=== PATIENT | female | born 1940 | race Caucasian/White ===

== ENCOUNTER 2020-09-20 05:54 | Day surgery (SDC) | payer MEDICARE, SELFPAY ==
--- NOTE | 2020-09-19 22:04 | PCM.HP.BLA ---
History and Physical Date of Admission: 09/20/20 HISTORY OF PRESENT ILLNESS 80 year old female presents for evaluation for TBSE. She has concerns about enlarging lesions on her right supramedial cheek and left chin that have been increasing in size. They have also developed ulceration. She states the lesion on her right supramedial cheek has been excised in the past and she was told it was a basal cell carcinoma. She also has concerns about an erythematous lesion on her left cheek by the lateral lower eyelid and a lesion right lateral canthal area that have increased in size as well. She has a family history of skin cancer. She presents today for further evaluation and treatment. 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 Eyes - History of cataracts but denies glaucoma. ENT - Denies nasal congestion and sore throat. Has history of seasonal allergies. Endocrine - Denies excessive thirst and urination. Skin - Has a history of basal cell carcinoma right supramedial cheek. She has enlarging lesions right supramedial cheek, left chin, left cheek by lateral lower eyelid, and right lateral canthal area. Has family history of skin cancer. Musculoskeletal - Denies joint pain, joint stiffness, weakness of muscles and joints, back pain, and arthritis. History of bone fractures. Neuro - Denies headaches. Cardiovascular - Denies chest pain, fatigue, and shortness of breath with exertion. History of HTN. Psych - Denies anxiety and depression. Respiratory - Denies chronic cough and shortness of breath. Gastrointestinal - Denies nausea, vomiting, diarrhea, and constipation. Hematologic - Denies abnormal bruising and bleeding. Genitourinary - Denies hematuria and urinary frequency. PHYSICAL EXAMINATION General - Alert and oriented. HEENT - PERRL. EOMI. Throat is clear. On the right supramedial cheek is an ulcerated lesion that measures 8 mm. Some nodularity seen. Has irregular borders. Lesion is nontender. On the left chin is an ulcerated lesion that measures 1.1 cm. Some nodularity seen. Has irregular borders. Lesion is nontender. On the left cheek by lateral lower eyelid is an erythematous lesion that measures 5 mm. Lesion is flat. Has irregular borders. No ulceration. Lesion is nontender. On the right lateral canthal area is a nodular lesion that measures 4 mm. Has irregular borders. No ulceration. Lesion is nontender. Neck - Supple and non-tender. No cervical adenopathy. No suspicious lesions noted. Lungs- Clear to auscultation. Heart - Regular rate and rhythm. Abdomen - Soft and non distended. Extremities - FROM. No axillary adenopathy. Radial pulses are palpable. No suspicious lesions noted. Neuro - CN II-XII grossly intact. Psych - Normal mood and affect. ASSESSMENT 1. 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 2. 1.1 cm ulcerated lesion left chin, clinically consistent with basal cell carcinoma. 3. 5 mm erythematous lesion left cheek by lateral lower eyelid. 4. 4 mm lesion right lateral canthal area. 5. Family history of skin cancer. PLAN Recommend excision of these lesions (right supramedial cheek, left chin, left cheek by lateral lower eyelid, and right lateral canthal area) and send them to Pathology for analysis to rule out carcinoma. If carcinoma is present, then further excision will be done with local skin flap reconstruction. If all 4 lesions are carcinoma, will reconstruct them in stages. Will reconstruct the right supramedial cheek wound after excision of the recurrent basal cell carcinoma with a cheek advancement skin flap. The lesion left chin is clinically consistent with a basal cell carcinoma and will be sent for a frozen section as well. If carcinoma is seen, will excise with a margin. Will initially leave the wound open and proceed with Silver dressing changes postoperatively. Can reconstruct at a later date with a skin flap. The lesions left cheek by lateral lower eyelid and right lateral canthal area will be sent to permanent Pathology for analysis to rule out carcinoma. Will not send as a frozen section as further excision will not be done at the same time due to time constraints. I like to limit elective surgery to 2 hours or less. These lesions can be reconstructed at a later date if carcinoma is present when the permanent Pathology becomes available. Patient voices understanding about the possible need for multiple procedures. Surgery will be done under local anesthesia and IV sedation on an outpatient basis. Patient was informed of the risks and complications of the procedure including alternatives to surgery. These were discussed with the patient personally. Patient voices understanding and wishes to proceed. Some of the risks and complications were included in a form from the [employer]. We discussed the current risks associated with COVID-19. While it is understood that there is a community spread of COVID-19, the risk of nilay COVID-19 while at [facility] ([facility]) is very low; however, the risk cannot be completely mitigated because of the community spread of the disease. We discussed in detail the risk of exposure to and/or potential harm posed by the COVID-19 virus with having a surgery/procedure at this time versus the risk of delaying the surgery/procedure. It is not possible to know either the risk of delaying the surgery or procedure or chance of getting an infection with perfect accuracy, but a joint decision was made to proceed at this time with the scheduled surgery/procedure as indicated on the consent form. Patient was notified that we will need to comply with any screening or testing [facility] wishes to perform or that surgery may be delayed for any positive results. Discussed with the patient that I was tested for COVID-19 on 02/08/20 which was negative and on 02/22/20 which was negative and on 03/07/20 which was negative and on 03/21/20 which was negative and on 04/04/20 which was negative and on 04/25/20 which was negative and on 05/16/20 which was negative and on 06/20/20 which was negative and on 07/11/20 which was negative and on 07/30/20 which was negative. My testing regimen at this time is to be COVID-19 tested every 2 weeks or so. I received the COVID-19 vaccine (Moderna) on 08/07/20 and the second vaccine dose was received on 09/04/20. Procedure Criteria Procedure Type: Elective COVID Risk Discussion: The surgeon/proceduralist and patient have discussed in detail the risk of exposure to and/or potential harm posed by the COVID-19 virus with having a surgery/procedure at this time versus the risk of delaying the surgery/procedure. It is not possible to know either the risk of delaying the surgery or procedure or chance of getting an infection with perfect accuracy, but a joint decision was made between the patient and the surgeon/proceduralist to proceed at this time with the scheduled surgery/procedure as indicated on the consent form.
[2020-09-20] VITALS (15 sets, daily range): BP systolic 141–172; BP diastolic 62–131; PULSE 58–71; RESP 16–18; TEMP 36.3–36.9; O2SAT 95–100; BMI 30.2
--- NOTE | 2020-09-20 | IMM_PTH ---
PATIENT: CURRY MAX LOC: [facility] [place] U#:[id number] AGE/SX: 80/F ROOM: RE09/20/[address]: Dr. Bryce Dominguez MD : 1940 BED: DIS: 09/20/2020 SPEC #: [id number] RECD: 09/23/20 11:25 STATUS: TONG REQ #: [id number] ERNESTO: 09/20/20 00:[address]: Bryce Dominguez DEPT: IMMUNOHISTOCHEMISTRY RECD BY: Jovanna Mojica ENTERED: 09/23/20 11:26 SP TYPE: IMMUNO OTHR DR: Dr. Mariano Tay MD Tissues: E - Skin of face, NOS Procedures: P53 (add) Vimentin (add) Pankeratin (initial) MELAN-A (add) S-100 (add) PHYSICIAN & INSTITUTION [place] [id number] SPECIMEN INFORMATION: Tissue Source: E - Basal cell carcinoma right supramedial cheek, suture at 12 o'clock Clinical Info: Recurrent ulcerated BCC right supramedial cheek Specimen Number: [id number] CPT code: 53142, 90057 x4 METHODOLOGY: Deparaffinized sections of prefer/formalin-fixed tissue or PAP/DQ stained slides are incubated with monoclonal/polyclonal antibodies/oligonucleotide probes. Localization is made via biotin free immunoperoxidase method. Appropriate controls are performed and reacted as expected. Results on target cell population are indicated in the following table: RESULTS: ANTIBODY / CLONE RESULT Block E2 AE1-3 (AE1/AE3/PCK26) negative Vimentin (V9) positive Melan A (A103) positive S-100 (4C4.9) positive P53 (DO-7) negative These tests were developed and their performance characteristics determined by [facility]. They may not have been cleared or approved by the U.S. Food and Drug Administration. The FDA has determined that such clearance or approval is not necessary. The above immunohistochemical/dualISH markers are ordered and reviewed by the Pathologist. INTERPRETATION: E. Basal cell carcinoma right supramedial cheek, biopsy: Intradermal nevus. AM:anel 09/24/2020
--- NOTE | 2020-09-20 | LES_PTH ---
PATIENT: CURRY MAX LOC: [facility] [place] U#:[id number] AGE/SX: 80/F ROOM: RE09/20/[address]: Dr. Bryce Dominguez MD : 1940 BED: DIS: 09/20/2020 SPEC #: [id number] RECD: 09/20/20 08:03 STATUS: TONG REAilyn #: [id number] ERNESTO: 09/20/20 00:[address]: Bryce Dominguez DEPT: SURGICAL PATHOLOGY RECD BY: Jovanna Mojica ENTERED: 09/20/20 08:56 SP TYPE: Lesion OTHR DR: Dr. 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 Recurrent BCC, right supramedial cheek, shave biopsy: Basal cell carcinoma. B. Lesion left chin, shave biopsy: Basal cell carcinoma. SJ:anel 09/20/2020 MICROSCOPIC DIAGNOSIS A. Skin of right cheek, shave biopsy: Basal cell carcinoma, superficial, nodular, incompletely excised. Demodex folliculorum. B. Skin of left chin, shave biopsy: Basal cell carcinoma, superficial, nodular, incompletely excised. Solar elastosis. C. Skin lesion, right lateral canthal region, biopsy: Basal cell carcinoma, incompletely excised. See comment. D. Skin lesion of left cheek by lateral lower eyelid, shave biopsy: Basal cell carcinoma, superficial, nodular, incompletely excised. E. Skin lesion, right supramedial cheek, excision: Focal residual basal cell carcinoma, completely excised. Solar elastosis. Focal intradermal nevus. Recent ulcer consistent with previous biopsy. See comment. F. Skin lesion, left chin, excision: Basal cell carcinoma, multifocal, completely excised. Solar elastosis. AM:anel 09/23/2020 COMMENT C. The lesion extends to the peripheral and deep margins of excision. E. Immunohistochemistry ([id number]) supports the above diagnosis. MICROSCOPIC DESCRIPTION Slides are reviewed. GROSS DESCRIPTION A - Received fresh for frozen section diagnosis labeled with the patient's name is a specimen designated recurrent basal cell carcinoma right supramedial cheek. The specimen consists of a shave biopsy of diaz-white skin measuring 1.2 x 0.6 x 0.1 cm. An area of ulceration is noted. The specimen is inked, serially sectioned and submitted entirely for frozen section diagnosis in one cassette. B - Received fresh for frozen section diagnosis labeled with the patient's name is a specimen designated lesion left chin. The specimen consists of a shave biopsy of diaz-white skin measuring 1.5 x 1 x 0.1 cm. The specimen is inked, serially sectioned and submitted entirely for frozen section diagnosis in one cassette. C - Received in fixative is one container labeled with the patient's name and designated lesion right lateral canthal area. The specimen consists of a round piece of diaz-white skin measuring 0.4 cm in diameter and 0.1 cm in length. The specimen is inked and submitted entirely in one cassette. D - Received in fixative is one container labeled with the patient's name and designated lesion left cheek by lateral lower eyelid. The specimen consists of a piece of diaz-white skin measuring 0.6 x 0.5 x 0.1 cm. The specimen is inked and submitted entirely in one cassette. It will sectioned at the time of embedding. E - Received in fixative is one container labeled with the patient's name and designated basal cell carcinoma right supramedial cheek, suture at 12 o'clock. The specimen consists of a round piece of diaz-white skin measuring 1.5 x 1.2 cm and up to 1 cm in thickness. A central area of ulceration is noted measuring 1 cm in greatest dimension. The specimen is inked as follows: 12 to 3 o'clock - black, 3 to 6 o'clock - blue, 6 to 9 o'clock - green and 9 to 12 o'clock - yellow. The specimen is serially sectioned and submitted entirely in two cassettes. F - Received in fixative is one container labeled with the patient's name and designated basal cell left chin, suture at 12 o'clock. The specimen consists of a round piece of diaz-white skin measuring 2 x 1.8 cm and 0.6 cm in thickness. The specimen is inked as follows: 12 to 3 o'clock - black, 3 to 6 o'clock - blue, 6 to 9 o'clock - green and 9 to 12 o'clock - yellow. The specimen is serially sectioned and submitted entirely in two cassettes. / MIKE:anel 09/20/20 TC:0 CPT: 26906 x6, 77012 x2
[2020-09-20] MEDS: Lactated Ringers 1,000 ML 100 ML IV ×3 (06:31→11:13)
[2020-09-20] MEDS: Lidocaine 1%/Epi 1:200 (30ml) 30 ML AMPUL (07:54)
[2020-09-20] MEDS: Mupirocin Ointment 22gm Tube 1 APPLIC (10:14)
[2020-09-20] MEDS: Silver Nitrate (BKC) 1 EACH (10:19)
--- NOTE | 2020-09-20 10:52 | PCM.OPRPT ---
Report of Operation Date of Procedure: 09/20/20 Pre-Operative Diagnosis: 1. 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 2. 1.1 cm ulcerated lesion left chin, clinically consistent with basal cell carcinoma. 3. 5 mm erythematous lesion left cheek by lateral lower eyelid. 4. 4 mm lesion right lateral canthal area. 5. Family history of skin cancer. Post-Operative Diagnosis: 1. 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 2. 1.1 cm ulcerated basal cell carcinoma left chin. 3. 5 mm erythematous lesion left cheek by lateral lower eyelid. 4. 4 mm lesion right lateral canthal area. 5. Family history of skin cancer. Surgery/Procedure Performed:: 1. Excision 8 mm recurrent ulcerated basal cell carcinoma right supramedial cheek with extension onto right lateral nasal sidewall with right cheek advancement skin flap (25 cm2) and FTSG reconstruction right lateral nasal sidewall from right neck (1 cm2). 2. Excision 1.1 cm ulcerated basal cell carcinoma left chin. 3. Intradermal excision 5 mm erythematous lesion left cheek by lateral lower eyelid. 4. Intradermal excision 4 mm lesion right lateral canthal area. Description of Surgical Findings:: 80 year old female presents for evaluation for TBSE. She has concerns about enlarging lesions on her right supramedial cheek and left chin that have been increasing in size. They have also developed ulceration. She states the lesion on her right supramedial cheek has been excised in the past and she was told it was a basal cell carcinoma. She also has concerns about an erythematous lesion on her left cheek by the lateral lower eyelid and a lesion right lateral canthal area that have increased in size as well. She has a family history of skin cancer. Patient was informed of the risks and complications of the procedure including alternatives to surgery. These were discussed with the patient personally. Patient voices understanding and wishes to proceed. Some of the risks and complications were included in a form from the [employer]. Frozen section right supramedial cheek - basal cell carcinoma. Frozen section left chin - basal cell carcinoma. Defect left chin - 1.9 x 1.9 cm. Size of skin graft right lateral nasal sidewall - 1 x 1 cm. attorney law clerk: Kostohryz,Catracho A - SPINNING MULE T[employer]ER. Type of Anesthesia:: Local MAC - xylocaine with epinephrine and IV sedation. Specimen's removed: 1. Recurrent ulcerated basal cell carcinoma right supramedial cheek to Pathology as a frozen section. 2. Ulcerated lesion left chin to Pathology as a frozen section. 3. Erythematous lesion left cheek by lateral lower eyelid to Pathology. 4. Lesion right lateral canthal area to Pathology. 5. Recurrent ulcerated basal cell carcinoma right supramedial cheek to Pathology. 6. Ulcerated basal cell carcinoma left chin to Pathology. Drains: None. Estimated Blood Loss (mL): 25 ml. Description of Procedure: Patient was taken to OR in supine position and was given IV sedation. The face and neck areas were prepped and draped in the usual fashion. SCD's were placed for DVT prophylaxis. Perioperative antibiotics were given intravenously. The lesions right supramedial cheek, left chin, left cheek by lateral lower eyelid, and right lateral canthal areas were infiltrated with xylocaine and epinephrine. After waiting 5 minutes for the anesthetic to take effect, the lesions were excised in an intradermal fashion and sent to Pathology. The right supramedial cheek lesion and the left chin lesion will be sent for a frozen section. The other two lesions (left cheek by lateral lower eyelid and right lateral canthal area) will be sent for permanent Pathology since I won't be doing flaps on all the lesions if positive for cancer. The right supramedial cheek lesion which is a recurrent basal cell carcinoma will be reconstructed with a flap today. The left chin lesion is clinically suspicious for a basal cell carcinoma and it will be excised today if the frozen section is positive. However no reconstruction will be done today. That would be too much anesthesia for one day in this 80 year old. If the other two lesions that are sent for permanent pathology come back as carcinoma as well then a second procedure will be scheduled. Patient was aware of this preoperatively and voiced understanding. Frozen section for the right supramedial cheek lesion and the left chin lesion came back as basal cell carcinomas. Additional tissue will be excised and sent to Pathology for analysis to rule out carcinoma at the margins. The right supramedial cheek lesion is recurrent and ulcerated and will be excised with a 4 mm margin in all directions thus making a 1.6 cm excision. The left chin lesion is ulcerated and will be excised with a 4 mm margin in all directions thus making a 1.9 cm excision. Sutures were marked at the 12 oclock position for pathology orientation. Both lesions were sent to Pathology for analysis to rule out carcinoma at the margins. For the right supramedial cheek basal cell carcinoma, the resultant excised defect extended onto the lateral nasal sidewall. I don't like to extend the cheek flap onto the nose so I stop at the edge of the cosmetic subunit. That portion of the basal cell carcinoma defect on the right lateral nasal sidewall will be skin grafted. I marked out an ellipse of skin on the right neck. It was infiltrated with xylocaine with epinephrine. I excised the ellipse of skin into the subcutaneous tissue. The subcutaneous tissue was removed from the undersurface of the dermis thus fashioning a full thickness skin graft. The skin graft was placed in saline. The donor site right neck was closed in a layered fashion after hemostasis was obtained with electrocautery. The deep dermis and subcutaneous tissue was approximated with 5-0 Monocryl interrupted sutures. The skin was approximated with 5-0 Prolene simple interrupted sutures. This was followed by antibiotic ointment and an Op-site dressing. I designed the cheek flap for advancement by marking the nasolabial fold and the skin crease between the thick cheek skin and the thin eyelid skin. I extended the lateral markings superiorly in the lateral canthal area to minimize scar contracture of the resultant scar on the lower eyelid. The cheek flap was elevated at the level of the underlying facial musculature. The flap was easily advanced into the defect up to the edge of the medial cheek/lateral nasal sidewall to preserve the cosmetic subunits. The size of the defect and the size of the flap needed to close the defect was 25 cm2. The resultant wound on the lateral nasal sidewall has dimensions of 1 x 1 cm or 1 cm2. The cheek flap was advanced and closed in a layered fashion with 5-0 Monocryl interrupted sutures for the deep dermis and subcutaneous tissue. The skin was approximated with 5-0 Prolene and 6-0 Prolene simple interrupted sutures. The full thickness skin graft was placed on the right lateral nasal sidewall defect and secured to the skin edges with 5-0 Chromic simple interrupted sutures. 5-0 Chromic sutures were also used for central quilting stabilization. Antibiotic ointment was applied to the skin graft followed by Xeroform gauze and cotton ball soaked in saline. It was secured to the skin graft with 4-0 Nylon tie over stent suture dressings. Antibiotic ointment was also applied to the cheek sutures. A small gauze dressing was applied over the right cheek. For the left chin wound which measured 1.9 x 1.9 cm, I dressed the wound with Aquacel Silver and secured with 4-0 Nylon tie over stent suture dressing. For the two intradermal excisions that were sent for permanent pathology (left cheek by lateral lower eyelid and right lateral canthal areas), hemostasis was obtained with silver nitrate chemical cauterization followed by antibiotic ointment. Patient tolerated the procedure well and was sent to PACU in satisfactory condition. Patient will be sent home on antibiotics and pain medication. She will keep her head elevated during the initial postoperative period. Patient will followup on 09/23/20, for a wound check and a Silver dressing change to the left chin and instruct the family on the dressing change. The pathology report will be discussed when available and the sutures will be removed in a week. Grafts/Implants Used: None. - Complications None. - Admit VTE Documentation VTE Present on Admission: No VTE Mechan Device Prophylaxis: SCD's VTE Pharm Prophylaxis ordered?: No Surgery Charges CPT - 76413 ICD-10 - C44.319, Z80.8 65304 C44.319, Z80.8 11961 C44.319, Z80.8 23216 S01.80xA, C44.319, Z80.8 52054 D49.2, Z85.828, Z80.8 66842 D49.2, Z85.828, Z80.8
--- NOTE | 2020-09-20 10:58 | PCM.DC ---
You will use the following diet at home:: No restrictions Discharge Activity: May Not Drive, May Shower - from the neck down in 2 days. Avoid getting the right cheek and left chin wounds wet., - - keep head elevated. no heavy lifting. May shower in (days): 2 - from the neck down. May resume sexual activity in: No Restrictions Ice area for (Minutes): 5 - as needed for facial swelling. Weight Bearing Status: Weight bearing as tolerated Lifting Restrictions: 10 lbs. Keep extremity elevated above heart level: - - elevate head. Call your doctor if your incision/area has: Continuous Slow Oozing, Sudden Increased Bleeding, Increased Pain/ Swelling, Increased Redness, Foul Smelling Discharge, Swelling at the incision site Call your doctor if you observe: Fever of 101 or Higher, Coldness, Increased Pain, Shortness of breath, Chest pain, Calf discomfort, Uncontrolled pain Suture Line Care: - - apply antibiotic ointment to the suture lines daily after the operative dresisng removed in the office. Change Dressing in (Days):: 3 - will change the left chin dressing in the office on 09/23/20. Remove Dressing in (days):: 2 - may remove neck dressing and right cheek dressing in two days. do not remove the skin graft dressing on the right lateral nose. that will be removed in the office. Cleanse incision/area with: - - may shower in two days from the neck down. Allergies/Adverse Reactions: Allergies No Known Allergies Allergy (Verified 09/13/20 11:06) Medications to take at Discharge vitamin A-vit C-vit E-zinc-Cu tablet 1 tab PO BID 09/02/20 Atenolol/Chlorthalidone [Atenolol-Chlorthalidone 50-25] 0.5 tab PO DAILY 09/13/20 Clindamycin HCl [Cleocin] 300 mg PO TID #21 cap 09/20/20 Lactobacillus Acidophilus/Fos [Acidophilus Probiotic Tablet] 1 ea PO BID #20 tab 09/20/20 Oxycodone HCl/Acetaminophen [Percocet 5/325] 1 tab PO Q6H PRN PRN 5 Days #20 tab 09/20/20 The following prescriptions were given: Lactobacillus Acidophilus/Fos [Acidophilus Probiotic Tablet] 1 ea PO BID #20 tab Transmission Status: Pending to [facility] Clindamycin HCl [Cleocin] 300 mg PO TID #21 cap Transmission Status: Pending to [facility] Oxycodone HCl/Acetaminophen [Percocet 5/325] 1 tab PO Q6H PRN PRN 5 Days #20 tab PRN Reason: Pain Score 6-10 Transmission Status: Sent to [facility] Primary Care Physician: Mariano Tay MD [Primary Care Provider] - Test Results: Test results from this visit will be discussed in further detail at your follow-up appointment, if applicable. Please Follow Up With: Bryce Dominguez MD When: wednesday09/23/20. call [phone] for appt. Proposed Discharge Date: 09/20/20
== END 2020-09-20 14:00 | disposition home or self-care (01) ==
LOC: SDC 05:54 → AC 05:54
PROVIDERS: PCP Family Medicine; Referring Provider Surgery; Visit Provider Surgery
PROC: (CPT 11641; principal; 2020-09-20 07:20)
DX: C44.319 Basal cell carcinoma of skin of other parts of face (principal); L57.8 Other skin changes due to chronic exposure to nonionizing radiation; Z20.822 Contact with and (suspected) exposure to COVID-19
CPT/HCPCS: 00300; 11641; 14041; 15240; 87426; 88305; 88331; 88341; 88342; C9803; J7120; J2405